=== PATIENT | female | born 1965 ===

== ENCOUNTER 2018-05-02 11:03 | Outpatient (CLI) | payer SELFPAY ==
[2015-10-01 08:06] VITALS: O2SAT 99
== END 2018-05-02 11:04 | disposition home or self-care (01) | DRG 558 ==
LOC: CONVCARE 11:03
PROVIDERS: ATTEND Orthopaedic Surgery
DX: M75.41 Impingement syndrome of right shoulder (principal)
CPT/HCPCS: 73030